=== PATIENT | female | born 1975 | race Caucasian/White ===

== ENCOUNTER → 2020-10-02 | Outpatient (CLI) | payer BC, OTHER ==
[~2020-10-02] MED LIST: LODINE CAP 300300 MG PO
== END ==
LOC: KOH-I 10-01 10:30
DX: R74.8 Abnormal levels of other serum enzymes (principal); K76.0 Fatty (change of) liver, not elsewhere classified
CPT/HCPCS: 76705

== ENCOUNTER 2020-12-03 18:10 | Emergency (ER) | payer BC, OTHER ==
[2020-12-03] MEDS ORDERED: LODINE CAP 300300 MG PO (19:53)
== END 2020-12-03 20:10 | disposition home or self-care (01) ==
LOC: ER1 18:10
DX: M25.561 Pain in right knee (principal); Z88.5 Allergy status to narcotic agent; Z88.8 Allergy status to other drugs, medicaments and biological substances
CPT/HCPCS: 73564; 85379; 85610; 85730; 99283

== ENCOUNTER → 2022-04-06 | Outpatient (CLI) | payer BC | LOC: US 16:00 | DX: M79.604 Pain in right leg (principal); M79.605 Pain in left leg | CPT/HCPCS: 93925; 93970 ==